=== PATIENT | male | born 1985 | race Two or more races ===

== ENCOUNTER 2021-05-25 08:37 | Emergency (ER) | payer OTHER ==
--- NOTE | 2021-05-25 08:39 | EDM.PDOC ---
ED HPI GENERAL MEDICAL PROBLEM - General Stated Complaint: R ELBOW PAIN Time Seen by Provider: 05/25/21 08:38 Source of Information: Reports: Patient History Limitations: Reports: No Limitations - History of Present Illness INITIAL COMMENTS - FREE TEXT/NARRATIVE: 36-year-old male past medical history gout presents for atraumatic right elbow pain x1 month. Patient was seen by a different provider and given a course of steroids as well as indomethacin which is since run out. He notes persistent pain despite taking the medications. He notes a small amount of swelling. He denies any falls or trauma to the area. The pain is worse with movement of the elbow. Denies fevers. right elbow Pain Score (Numeric/FACES): 10 - Related Data Allergies Allergy/AdvReac Type Severity Reaction Status Date / Time No Known Allergies Allergy Verified 05/25/21 09:14 Home Meds: Home Meds Indomethacin 50 mg PO BID 05/25/21 [History] ED ROS GENERAL - Review of Systems Review Of Systems: Comprehensive ROS is negative, except as noted in HPI. ED EXAM, GENERAL - Physical Exam Exam: See Below Exam Limited By: No Limitations General Appearance: Alert, WD/WN, No Apparent Distress Ears: Hearing Grossly Normal Throat/Mouth: Normal Voice, No Airway Compromise Head: Atraumatic, Normocephalic Neck: Normal Inspection Respiratory/Chest: No Respiratory Distress, No Accessory Muscle Use Cardiovascular: Normal Peripheral Pulses, Regular Rate, Rhythm Extremities: Normal Inspection, Other (mild swelling of R elbow and +TTP; no warmth or erythema) Neurological: Alert, Normal Cognition, Normal Gait Psychiatric: Normal Affect, Normal Mood Skin Exam: Warm, Dry, Intact, Normal Color Course - Vital Signs Last Recorded V/S: Last Vital Signs Temp 95.9 F L 05/25/21 09:05 Pulse 66 05/25/21 09:05 Resp 20 05/25/21 09:05 BP 124/78 05/25/21 09:05 Pulse Ox 98 05/25/21 09:05 - Orders/Labs/Meds Meds: Medications Discontinued Medications Generic Name Dose Route Start Last Admin Trade Name Freq PRN Reason Stop Dose Admin Dexamethasone 10 mg 05/25/21 09:08 05/25/21 09:31 Dexamethasone 10 Mg/Ml Sdv IM 05/25/21 09:09 10 mg STAT STA Administration Ketorolac Tromethamine 30 mg 05/25/21 09:08 05/25/21 09:30 Ketorolac 30 Mg/Ml Sdv IM 05/25/21 09:09 30 mg ONETIME ONE Administration Oxycodone/Acetaminophen 1 tab 05/25/21 09:08 05/25/21 09:31 Acetaminophen/Oxycodone 325-5 Mg Tab PO 05/25/21 09:09 1 tab ONETIME ONE Administration - Re-Assessments/Exams Free Text/Narrative Re-Assessment/Exam: 05/25/21 09:11 Low suspicion septic joint. Will get x-ray imaging to assess osseous structures and look for large effusion. Will give Toradol, Decadron, Percocet while working up. 05/25/21 10:05 X-ray imaging is unremarkable. Had a long discussion with patient about importance of follow-up with orthopedics and I placed him a follow-up list. I have also provided him with the phone number and address of the orthopedics office. Will discharge with course of indomethacin as patient states this is helped in the past. 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 They should be calling you to help you set up an appointment, however, if they do not reach out the numbers provided below for you to call them. I have also sent indomethacin to your pharmacy. The best way to protect yourself and others from COVID-19 is to take one of the three safe and effective vaccines that have been proven to substantially reduce risk of both infection and severe illness. [facility] is currently offering COVID vaccinations for anyone age 18 and older. To schedule an appointment call [phone]. Or, to be contacted by our clinics about scheduling your vaccine online, please go to [email or web address] The following information is given to patients seen in the emergency department who are being discharged to home. This information is to outline your options for follow-up care. We provide all patients seen in our emergency department with a follow-up referral. The need for follow-up, as well as the timing and circumstances, are variable depending upon the specifics of your emergency department visit. If you don't have a primary care physician on staff, we will provide you with a referral. We always advise you to contact your personal physician following an emergency department visit to inform them of the circumstance of the visit and for follow-up with them and/or the need for any referrals to a consulting specialist. The emergency department will also refer you to a specialist when appropriate. This referral assures that you have the opportunity for follow-up care with a specialist. All of these measure are taken in an effort to provide you with optimal care, which includes your follow-up. Under all circumstances we always encourage you to contact your private physician who remains a resource for coordinating your care. When calling for follow-up care, please make the office aware that this follow-up is from your recent emergency room visit. If for any reason you are refused follow-up, please contact the [facility] Emergency Department at and asked to speak to the emergency department charge nurse. Please follow up with your primary care physician. If you do not have a primary care physician, see below: [facility] [address] [place] [id number] [facility] [address] [place] [address] Sepsis Event Note (ED) - Focused Exam Vital Signs: Vital Signs Temp Pulse Resp BP Pulse Ox 05/25/21 09:05 95.9 F L 66 20 124/78 98
[2021-05-25] MEDS ORDERED: Ketorolac 30 MG/ML SDV IM ONE (09:08)
[2021-05-25] MEDS ORDERED: Acetaminophen/oxyCODONE 325-5 MG Tab PO ONE (09:08)
[2021-05-25] MEDS ORDERED: Dexamethasone 10 MG/ML SDV IM STA (09:08)
--- NOTE | 2021-05-25 09:37 | CR ---
Indication: Injury and pain Technique: Right elbow 3 views Comparison: None Findings: Bones: Alignment is normal. No fractures or bone lesions. Joint spaces: Unremarkable. No sign of joint effusion. Soft tissues: Unremarkable. Impression: Normal right elbow. No sign of acute injury. Dictated by Heath Najera MD @ 05/25/2021 9:34:[address] Heath Najera @ May 25 2021 9:34AM
== END 2021-05-25 10:25 | disposition home or self-care (01) ==
LOC: MW.ED 08:37
DX: M1A.9XX0 Chronic gout, unspecified, without tophus (tophi) (principal)
CPT/HCPCS: 73080; 96372; 99283; A9270; J1100; J1885

== ENCOUNTER 2021-06-27 15:07 | Emergency (ER) | payer OTHER ==
[2021-06-27] MEDS ORDERED: predniSONE 10 MG Tab PO ONE (19:11)
[2021-06-27] MEDS ORDERED: Indomethacin 25 MG Cap PO ONE (19:11)
--- NOTE | 2021-06-27 19:20 | EDM.PDOC ---
ED HPI GENERAL MEDICAL PROBLEM - General Chief Complaint: Upper Extremity Injury/Pain Stated Complaint: LEFT HAND SWOLLEN Time Seen by Provider: 06/27/21 18:59 - History of Present Illness INITIAL COMMENTS - FREE TEXT/NARRATIVE: HISTORY AND PHYSICAL: History of present illness: This is a 36-year-old gentleman with a history of diagnosed gout in the past who has been prescribed prednisone and indomethacin for treatment of his gout but never has been prescribed allopurinol who presents ER today secondary to his typical flareup of his gout. Patient reports he usually gets flareups to his left MCP joints and his toes as well as occasional episodes in his elbow. Patient reports that he has had increased inflammation and redness to his index MCP on the left x1 day. Patient has recent fevers, shakes, chills, nausea, vomiting, diarrhea, dysuria, frequency urgency, chest pain, shortness of breath, recent trauma. Review of systems: As per history of present illness and below otherwise all systems reviewed and negative. Past medical history: As per history of present illness and as reviewed below otherwise noncontributory. Surgical history: As per history of present illness and as reviewed below otherwise noncont ributory. Social history: No reported history of drug abuse. Family history: As per history of present illness and as reviewed below otherwise noncontributory. Physical exam: This patient was seen and evaluated during the 2019 SARS-CoV-2 novel coronavirus pandemic period. Community viral transmission is ongoing at time of this encounter and the emergency department is operating under pandemic response procedures. Constitutional: Patient is oriented to person, place, and time. Appears well- developed and well-nourished. No distress. HEENT: Moist mucous membranes Head: Normocephalic and atraumatic Eyes: Right eye exhibits no discharge. Left eye exhibits no discharge. No scleral icterus Neck: Normal range of motion. No tracheal deviation present. Cardiovascular: Normal rate and regular rhythm. Pulmonary: Effort normal, no respiratory distress. Abdominal: No distention Musculoskeletal: Normal range of motion Neurologic: Alert and oriented to person, place and time. Skin: [place], warm and dry. Psychiatric: Normal mood and affect. Behavior is normal. Judgment and thought content normal. Nursing note and vital signs have been reviewed Patient's ER physical exam is significant for tenderness to palpation to the skin over the first MCP joint of the left hand with some surrounding erythema. Patient has no effusion is appreciable. Patient has pain with range of motion. Diagnostics: [] Therapeutics: [] Assessment and plan: 36-year-old with history of gout who presents ER today with signs and symptoms consistent with his prior gouty flares in the same joint. Patient was given a prescription for prednisone 40 mg daily x5 days as well as indomethacin 50 mg p.o. 3 times a day as needed for 7 days. I have also discussed with the patient the benefit of taking allopurinol as preventative once a flareup has resolved. Patient will follow up with his primary care doctor and discussed with him continued use of allopurinol but we will write for him and he understands to take it after his pain is completely resolved. Patient has low risk for septic joint as this is identical to his prior flareups. No indication for arthrocentesis at this time as patient's history and symptoms are consistent with a gouty flareup. Reassessment at the time of disposition demonstrates that the patient is in no acute distress. The patient has remained stable throughout the entire ED visit and is without objective evidence for acute process requiring urgent intervention or hospitalization. The patient is stable for discharge, counseling is provided as documented above, discussed symptomatic treatment and specific conditions for return. I have spoken with the patient/caregiver and discussed todays findings, in addition to providing specific details for the plan of care. Questions are answered and there is agreement with the plan. Definitive disposition and diagnosis as appropriate pending reevaluation and review of above. Left Hand Pain Score (Numeric/FACES): 9 - Related Data Allergies Allergy/AdvReac Type Severity Reaction Status Date / Time No Known Allergies Allergy Verified 05/25/21 09:14 Home Meds: Home Meds Indomethacin 50 mg PO BID 05/25/21 [History] Indomethacin 50 mg PO TID PRN #30 capsule 06/27/21 [Rx] allopurinoL [Zyloprim] 100 mg PO DAILY #30 tab 06/27/21 [Rx] predniSONE [Prednisone] 50 mg PO DAILY #5 tablet 06/27/21 [Rx] Past Medical History - Past Health History Medical/Surgical History: Denies Medical/Surgical History Psychiatric History: Reports: None - Infectious Disease History Infectious Disease History: Reports: None - Past Surgical History GI Surgical History: Reports: Cholecystectomy Social & Family History - Tobacco Use Tobacco Use Status *Q: Never Tobacco User - Caffeine Use Caffeine Use: Reports: Coffee - Recreational Drug Use Recreational Drug Use: No Review of Systems - Review of Systems Review Of Systems: See Below ED EXAM, GENERAL - Physical Exam Exam: See Below Course - Vital Signs Last Recorded V/S: Last Vital Signs Temp 97.6 F 06/27/21 16:47 Pulse 103 H 06/27/21 16:47 Resp 18 06/27/21 16:47 BP 121/77 06/27/21 16:47 Pulse Ox 97 06/27/21 16:47 - Orders/Labs/Meds Orders: Active Orders 24 hr Category Date Time Status Indomethacin [Indocin] Med 06/27/21 19:11 Once 50 mg PO ONETIME ONE predniSONE Med 06/27/21 19:11 Once 40 mg PO ONETIME ONE Departure - Departure Time of Disposition: 19:16 Disposition: Home, Self-Care 01 Condition: Good Clinical Impression: Acute gouty arthritis - Discharge Information Instructions: Low-Purine Eating Plan, Gout, [id number] Referrals: PCP,None [Primary Care Provider] - Additional Instructions: Your seen and evaluated in the ER today secondary to a gouty flare to your left hand. You will be given a prescription for indomethacin 50 mg 3 times a day and prednisone 40 mg daily. Once your flareup is completely resolved, please take the allopurinol 100 mg daily. Please see your family doctor within the next 1 to 2 weeks as they may likely need to gradually increase that dose. The following information is given to patients seen in the emergency department who are being discharged to home. This information is to outline your options for follow-up care. We provide all patients seen in our emergency department with a follow-up referral. The need for follow-up, as well as the timing and circumstances, are variable depending upon the specifics of your emergency department visit. If you don't have a primary care physician on staff, we will provide you with a referral. We always advise you to contact your personal physician following an emergency department visit to inform them of the circumstance of the visit and for follow-up with them and/or the need for any referrals to a consulting specialist. The emergency department will also refer you to a specialist when appropriate. This referral assures that you have the opportunity for follow-up care with a specialist. All of these measure are taken in an effort to provide you with optimal care, which includes your follow-up. Under all circumstances we always encourage you to contact your private physician who remains a resource for coordinating your care. When calling for follow-up care, please make the office aware that this follow-up is from your recent emergency room visit. If for any reason you are refused follow-up, please contact the [facility] Emergency Department at and asked to speak to the emergency department charge nurse. [facility] [address] [place] [id number] [facility] [address] [place] [id number] Sepsis Event Note (ED) - Focused Exam Vital Signs: Vital Signs Temp Pulse Resp BP Pulse Ox 06/27/21 16:47 97.6 F 103 H 18 121/77 97 - My Orders Last 24 Hours: My Active Orders 06/27/21 19:11 Indomethacin [Indocin] 50 mg PO ONETIME ONE predniSONE 40 mg PO ONETIME ONE - Assessment/Plan Last 24 Hours: My Active Orders 06/27/21 19:11 Indomethacin [Indocin] 50 mg PO ONETIME ONE predniSONE 40 mg PO ONETIME ONE
== END 2021-06-27 19:58 | disposition home or self-care (01) ==
LOC: MW.ED 15:07
DX: M10.9 Gout, unspecified (principal)
CPT/HCPCS: 99283; A9270

== ENCOUNTER 2021-07-31 11:20 | Emergency (ER) | payer OTHER ==
--- NOTE | 2021-07-31 15:16 | EDM.PDOC ---
ED HPI GENERAL MEDICAL PROBLEM - General Chief Complaint: Lower Extremity Injury/Pain Stated Complaint: RT KNEE INJURY Time Seen by Provider: 07/31/21 15:06 Source of Information: Reports: Patient History Limitations: Reports: No Limitations - History of Present Illness INITIAL COMMENTS - FREE TEXT/NARRATIVE: HISTORY AND PHYSICAL: History of present illness: The patient is a 36-year-old man who resents to the emergency department with complaints of lateral right ankle pain that started on Monday. The patient states that this pain is just like the pain he gets in his left ankle with his gout for which she has been treated with indomethacin. The patient states that he has been taking Tylenol without help. The patient is from [place] and does not have a primary care provider appear to see. Patient denies any fever, chills, headache, change in vision, syncope or near syncope. Denies any chest pain, back pain, shortness of breath or cough. Denies any abdominal pain, nausea, vomiting, diarrhea, constipation or dysuria. Has not noted any blood in urine or stool. Patient has been eating and drinking appropriately. Review of systems: As per history of present illness and below otherwise all systems reviewed and negative. Past medical history: As per history of present illness and as reviewed below otherwise noncontributory. Surgical history: As per history of present illness and as reviewed below otherwise noncontributory. Social history: See social history for further information Family history: As per history of present illness and as reviewed below otherwise noncontributory. Physical exam: General: Well developed and well nourished. Alert and orientated x 3. Nontoxic in appearance and in no acute distress. Vital signs are stable and have been reviewed by me. Nursing notes were reviewed. HEENT: Atraumatic, normocephalic, pupils equal and reactive bilaterally, negative for conjunctival pallor or scleral icterus, mucous membranes moist, TMs normal bilaterally, throat clear, neck supple, nontender, trachea midline. No drooling or trismus noted. No meningeal signs. No hot potato voice noted. Lungs: Clear to auscultation bilaterally. No wheezes, rales, or rhonchi. Chest nontender. Normal work of breathing, no accessory muscles used. Heart: S1S2, regular rate and rhythm without overt murmur, gallops, or rubs. No JVD. No peripheral edema Abdomen: Soft, nondistended, nontender. Normoactive bowel sounds. Negative for masses or costovertebral tenderness. Skin: Intact, warm, dry. No lesions or rashes noted. Hematologic: No petechiae or purpra. Mucosa appropriate color and normal nail bed color and refill. Extremities: Atraumatic, moves all extremities per self without difficulty or deficits, negative for cords or calf pain. Neurovascular unremarkable. Right lateral ankle tender to touch. No discoloration noted. Neuro: Awake, alert, oriented. Cranial nerves II through XII unremarkable. Cerebellum unremarkable. Motor and sensory unremarkable throughout. Exam nonfocal. Psychiatric: Mood and affect are appropriate. Normal thought process. Answering questions appropriately. Notes: *This patient was seen and evaluated during the 2019 SARS-CoV-2 novel coronavirus pandemic period. Community viral transmission is ongoing at time of this encounter and the emergency department is operating under pandemic response procedures. The patient's right lateral ankle is extremely tender to touch. The patient is not tolerating a shoe on his foot. I do not see any discoloration. The patient states that this is similar to his Pain he normally gets in his left ankle. He has been treated successfully with indomethacin in the past. I will use indomethacin to treat his gout-like pain. Have instructed the patient that he needs to follow-up with a primary care for more definitive treatment and preventative treatment of his gout. The patient verbalizes understanding. I have talked with the patient about today's findings, in addition to providing specific details for plan of care. Reassessment at the time of disposition demonstrates that the patient is in no acute distress. The patient is stable for discharge, counseling was provided and we discussed in great detail signs and symptoms that would prompt them to return to the Emergency Department. Medication, follow up and supportive care measures were reviewed and discussed. Voices understanding and is agreeable to plan of care. Denies any further questions or concerns at this time. Prescription: Indomethacin 50 mg 3 times daily p.o. for 5 days Impression: Gout pain Plan: 1. You were evaluated today on an emergent basis. Your right ankle pain was evaluated and found to be an exacerbation of your gout. I have prescribed indomethacin 50 mg 3 times a day for 5 days. As this is an NSAID do not take Motrin. You can take a Pepcid [id number] if this irritates your stomach. You need to follow-up with your primary care for more definitive treatment and preventative treatment of the gout. 2. You can alternate Tylenol as needed for pain and fever management. Patient not take over 3000 mg of Tylenol in a 24-hour period. 3. We encourage you to follow up with your primary care provider and/or recommended specialist in the next few days for re-evaluation and further care/management. 4. If your symptoms should worsen, new symptoms develop or any of the signs and symptoms we discussed should arise please return to the emergency room or call 911 (if needed). Definitive disposition and diagnosis as appropriate pending reevaluation and rev iew of above. right leg Pain Score (Numeric/FACES): 10 - Related Data Allergies Allergy/AdvReac Type Severity Reaction Status Date / Time No Known Allergies Allergy Verified 07/31/21 13:48 Home Meds: Home Meds Indomethacin 50 mg PO BID 05/25/21 [History] Indomethacin 50 mg PO TID PRN #30 capsule 06/27/21 [Rx] Indomethacin 50 mg PO TID 5 Days #15 capsule 07/31/21 [Rx] Past Medical History - Past Health History Medical/Surgical History: Denies Medical/Surgical History Psychiatric History: Reports: None - Infectious Disease History Infectious Disease History: Reports: None - Past Surgical History GI Surgical History: Reports: Cholecystectomy Social & Family History - Family History Family Medical History: No Pertinent Family History - Tobacco Use Tobacco Use Status *Q: Never Tobacco User - Caffeine Use Caffeine Use: Reports: None - Recreational Drug Use Recreational Drug Use: No Review of Systems - Review of Systems Review Of Systems: Comprehensive ROS is negative, except as noted in HPI. ED EXAM, GENERAL - Physical Exam Exam: See Below (See dictation) Course - Vital Signs Last Recorded V/S: Last Vital Signs Temp 95.3 F L 07/31/21 13:49 Pulse 95 07/31/21 15:21 Resp 18 07/31/21 15:21 BP 136/92 H 07/31/21 15:21 Pulse Ox 100 07/31/21 15:21 Departure - Departure Time of Disposition: 15:15 Disposition: Home, Self-Care 01 Condition: Good Clinical Impression: Gout Qualifiers: Gout site: ankle Gout etiology: unspecified cause Chronicity: acute Laterality: right Qualified Code(s): M10.9 - Gout, unspecified - Discharge Information *PRESCRIPTION DRUG MONITORING PROGRAM REVIEWED*: Not Applicable *COPY OF PRESCRIPTION DRUG MONITORING REPORT IN PATIENT BETTY: Not Applicable Prescriptions: Indomethacin 50 mg PO TID 5 Days #15 capsule Instructions: Gout, [id number] Referrals: PCP,None [Primary Care Provider] - Forms: ED Department Discharge Additional Instructions: The following information is given to patients seen in the emergency department who are being discharged to home. This information is to outline your options for follow-up care. We provide all patients seen in our emergency department with a follow-up referral. The need for follow-up, as well as the timing and circumstances, are variable depending upon the specifics of your emergency department visit. If you don't have a primary care physician on staff, we will provide you with a referral. We always advise you to contact your personal physician following an emergency department visit to inform them of the circumstance of the visit and for follow-up with them and/or the need for any referrals to a consulting specialist. The emergency department will also refer you to a specialist when appropriate. This referral assures that you have the opportunity for follow-up care with a specialist. All of these measure are taken in an effort to provide you with o ptimal care, which includes your follow-up. Under all circumstances we always encourage you to contact your private physician who remains a resource for coordinating your care. When calling for follow-up care, please make the office aware that this follow-up is from your recent emergency room visit. If for any reason you are refused follow-up, please contact the [facility] Emergency Department at and asked to speak to the emergency department charge nurse. [facility] - [facility] [address] [place] [id number] [address] Plan: 1. You were evaluated today on an emergent basis. Your right ankle pain was evaluated and found to be an exacerbation of your gout. I have prescribed indomethacin 50 mg 3 times a day for 5 days. As this is an NSAID do not take Motrin. You can take a Pepcid [id number] if this irritates your stomach. You need to follow-up with your primary care for more definitive treatment and preventative treatment of the gout. 2. You can alternate Tylenol as needed for pain and fever management. Patient not take over 3000 mg of Tylenol in a 24-hour period. 3. We encourage you to follow up with your primary care provider and/or recommended specialist in the next few days for re-evaluation and further care/management. 4. If your symptoms should worsen, new symptoms develop or any of the signs and symptoms we discussed should arise please return to the emergency room or call 911 (if needed).
== END 2021-07-31 15:23 | disposition home or self-care (01) ==
LOC: MW.ED 11:20
DX: M10.9 Gout, unspecified (principal)
CPT/HCPCS: 99283